=== PATIENT | female | born 1960 | race Caucasian/White ===

== ENCOUNTER 2016-11-28 01:04 | Inpatient (IN) | payer OTHER ==
[2016-11-28] VITALS (13 sets, daily range): BP systolic 135–183; BP diastolic 54–103; PULSE 80–128; RESP 16–20
[~2016-11-28] VITALS: Ht 157.5 cm; Wt 92.2 kg
[~2016-11-28 01:04] MED LIST: ATEN50TA; HYDR25TA6; LEVO75TA59; PARO20TA58
[2016-11-28] MEDS ORDERED: morphine 2 MG INJ IV PRN (03:30)
[2016-11-28] MEDS: SOD CHLORIDE 0.9% 1,000 ML IV SCH ×3 (03:30→22:55)
[2016-11-28 06:57] LABS: ALBUMIN/GLOBULIN RATIO 1.37; BILIRUBIN,INDIRECT 0.4 mg/dl (0-1.1); BILIRUBIN,TOTAL 0.4 mg/dl (0.2-1.3); CALCIUM 8.1 mg/dl (8.4-10.2); CREATININE 0.63 mg/dl (0.44-1.00); MAGNESIUM 1.5 mg/dl (1.7-2.5); PHOSPHORUS 3.5 mg/dl (2.5-4.9); TOTAL PROTEIN 6.9 g/dl (6.1-8.1)
[2016-11-28] MEDS ORDERED: LABETALOL HCL 20MG INJ IV PRN (07:30)
--- NOTE | 2016-11-28 07:54 | HP ---
Date/Time of Note Date/Time of Note DATE: 11/28/16 TIME: 07:48 Assessment/Plan VTE Prophylaxis VTE Prophylaxis Intervention: SCD's Lines/Catheters IV Catheter Type (from Nrs): Peripheral IV Urinary Cath still in place: No Assessment/Plan Assessment/Plan 1. Alcohol intoxication/withdrawal -Banana bag, IV fluid, Librium with as needed Ativan -Abstinence from alcohol is been advised. Social work/case resolution specialist will provide information to help her 2. Hypertension: Blood pressure not within goal likely contributed from alcohol intoxication -We will continue her home medications adjustment as needed 3. History of hypothyroidism -We will check TSH in the morning -We will continue her Synthroid 4. History of alcohol induced seizure: Last episode was 2 years ago -We will monitor closely. Will treat her alcohol related issue aggressively 5. History of depression/anxiety -Continue home medication 6. TMJ pain -We will provide NSAID for now HPI/ROS Admit Date/Time Admit Date/Time Nov 28, 2016 at 02:42 Hx of Present Illness This is a 56-year-old female with a history of hypertension, hypothyroidism, depression, alcohol abuse and alcohol induced seizure who initially was found intoxicated in the [facility]. She was tachycardic and is showing signs of withdrawal symptoms as well. She was given Ativan IV fluid and was transferred to [facility] because of insurance reason. Her last drink was 2 hours before she was found in the [facility]. She said that she has been drinking a pint of vodka for about 2 weeks. She has previously been to rehab but has been relapsing. She said her last alcohol induced seizure was 2 years ago. On further questioning she also complained of pain on her cheeks which she said was from a TMJ. . PMH/Family/Social Social History Smoking Status: Never smoker Exam/Review of Systems Vital Signs Vitals Vital Signs Date Time Temp Pulse Resp B/P Pulse Ox O2 Delivery O2 Flow Rate FiO2 11/28/16 04:35 123 11/28/16 02:50 98.2 16 159/54 96 Room Air Intake and Output 11/27/16 11/27/16 11/28/16 15:00 23:00 07:00 Intake Total 500 ml Balance 500 ml Exam Constitutional: other (Obese. Appears slightly anxious. Answering questions appropriately.) Head: atraumatic, normocephalic Eyes: EOMI, PERRL Respiratory: clear to auscultation, normal air movement Cardiovascular: nl pulses, regular rate and rhythm Gastrointestinal: soft Labs Result Diagram: 11/28/16 0530 Medications Medications Current Medications Multivitamins 10 ml/Thiamine HCl 100 mg/Folic Acid 1 mg/Sodium Chloride 1,011.2 ml @ 125 mls/ hr DAILY@09 IVPB ; Start 11/28/16 at 09:00 Sodium Chloride (NS) 1,000 ml @ 100 mls/hr Q10H IV Last administered on t 03:30; Admin Dose 100 MLS/HR; Start 11/28/16 at 03:30 Lorazepam (Ativan) 1 mg Q1HWA PRN IV AGITATION/ANXIETY; Start 11/28/16 at 03:30 Morphine Sulfate (morphine) 2 mg Q4H PRN IV PAIN; Start 11/28/16 at 03:30 Lorazepam (Ativan) 2 mg Q1H PRN IV alcohol withdrawal; Start 11/28/16 at 07:30 Chlordiazepoxide (Librium) 50 mg TID PO ; Start 11/28/16 at 09:00 Levothyroxine Sodium (Synthroid) 75 mcg DAILY@06 PO ; Start 11/28/16 at 08:00 Paroxetine HCl (Paxil) 20 mg DAILY PO ; Start 11/28/16 at 09:00 Labetalol HCl (Labetalol) 10 mg Q2H PRN IV sbp > 160; Start 11/28/16 at 07:30 Ibuprofen (Motrin) 400 mg Q6H PRN PO PAIN OR TEMP ABOVE 38C; Start 11/28/16 at 07:30 KIMBERLEE STEWART MD Nov 28, 2016 07:54
[2016-11-28 07:55] LABS: BASOPHILS % 0.6 % (0.0-2.0); EOSINOPHILS # 0.1 10^3/ul (0.0-0.5); EOSINOPHILS % 1.3 % (0.0-7.0); HEMATOCRIT 36.3 % (37.0-47.0); HEMOGLOBIN 12.4 g/dl (12.0-16.0); LYMPHOCYTES # 2.3 10^3/ul (0.8-2.9); LYMPHOCYTES % 33.9 % (15.0-51.0); MEAN CORPUSCULAR HEMOGLOBIN 30.8 pg (29.0-33.0); MEAN CORPUSCULAR HGB CONC 34.2 g/dl (32.0-37.0); MEAN CORPUSCULAR VOLUME 90.3 fl (82.0-101.0); MEAN PLATELET VOLUME 8.5 fl (7.4-10.4); MONOCYTE # 0.7 10^3/ul (0.3-0.9); MONOCYTES % 10.2 % (0.0-11.0); NEUTROPHIL # 3.6 10^3/ul (1.6-7.5); NEUTROPHILS % 53.7 % (39.0-77.0); PLATELET COUNT 209 10^3/UL (140-415); RED BLOOD COUNT 4.02 10^6/ul (4.20-5.40); RED CELL DISTRIBUTION WIDTH 12.6 % (11.5-14.5); WHITE BLOOD COUNT 6.7 10^3/ul (4.8-10.8)
[2016-11-28] MEDS: CHLORDIAZEPOXIDE 25 MG CAP PO SCH ×3 (09:09→20:45)
[2016-11-28] MEDS: PAROXETINE 20 MG TAB PO SCH (09:09)
[2016-11-28] MEDS: LEVOTHYROXINE 75 MCG TAB PO SCH (09:09)
[2016-11-28] MEDS: MULTIVITAMINS 10 ML, THIAMINE 100 MG, FOLIC ACID 1 MG in SOD CHLORIDE 0.9% 1,000 ML IVPB SCH (09:32)
[2016-11-28] MEDS ORDERED: NACL 0.9% 3 ML SYG IV SCH (10:30)
[2016-11-28] MEDS: ATENOLOL 50 MG TAB PO SCH (11:27)
[2016-11-28] MEDS: HYDROCHLOROTHIAZIDE 12.5 MG CAP PO SCH (11:27)
[2016-11-28] MEDS: LOSARTAN 50 MG TAB PO SCH (11:27)
--- NOTE | 2016-11-28 13:28 | QN ---
Documentation Comment continue DT prophylaxis admitted today, no progress note continue home meds prn BP medications. cont IV hydration TRAN BELL Nov 28, 2016 13:28
[2016-11-29] VITALS (13 sets, daily range): BP systolic 113–152; BP diastolic 64–84; PULSE 63–79; RESP 18–20
[2016-11-29] MEDS: IBUPROFEN 400 MG TAB PO PRN ×2 (00:09→22:47)
[2016-11-29] MEDS ORDERED: MAGNESIUM SULFATE 1 GM/D5W 100 ML IVPB ONE (03:00)
[2016-11-29] MEDS: LEVOTHYROXINE 75 MCG TAB PO SCH (05:08)
[2016-11-29 05:52] LABS: BASOPHILS % 0.8 % (0.0-2.0); EOSINOPHILS # 0.2 10^3/ul (0.0-0.5); EOSINOPHILS % 4.8 % (0.0-7.0); HEMATOCRIT 34.3 % (37.0-47.0); HEMOGLOBIN 11.8 g/dl (12.0-16.0); LYMPHOCYTES # 1.8 10^3/ul (0.8-2.9); LYMPHOCYTES % 48.4 % (15.0-51.0); MEAN CORPUSCULAR HEMOGLOBIN 31.6 pg (29.0-33.0); MEAN CORPUSCULAR HGB CONC 34.4 g/dl (32.0-37.0); MEAN PLATELET VOLUME 8.6 fl (7.4-10.4); MONOCYTE # 0.5 10^3/ul (0.3-0.9); MONOCYTES % 13.4 % (0.0-11.0); NEUTROPHIL # 1.2 10^3/ul (1.6-7.5); NEUTROPHILS % 32.6 % (39.0-77.0); PLATELET COUNT 178 10^3/UL (140-415); RED BLOOD COUNT 3.73 10^6/ul (4.20-5.40); RED CELL DISTRIBUTION WIDTH 12.5 % (11.5-14.5); WHITE BLOOD COUNT 3.7 10^3/ul (4.8-10.8)
[2016-11-29 06:31] LABS: ALBUMIN 3.7 g/dl (3.3-4.9); ALBUMIN/GLOBULIN RATIO 1.32; BILIRUBIN,INDIRECT 0.7 mg/dl (0-1.1); BILIRUBIN,TOTAL 0.7 mg/dl (0.2-1.3); CALCIUM 8.4 mg/dl (8.4-10.2); CREATININE 0.61 mg/dl (0.44-1.00); TOTAL PROTEIN 6.5 g/dl (6.1-8.1)
[2016-11-29] MEDS: CHLORDIAZEPOXIDE 25 MG CAP PO SCH ×2 (09:30→20:22)
[2016-11-29] MEDS: ATENOLOL 50 MG TAB PO SCH (09:30)
[2016-11-29] MEDS: LOSARTAN 50 MG TAB PO SCH (09:30)
[2016-11-29] MEDS: PAROXETINE 20 MG TAB PO SCH (09:30)
[2016-11-29] MEDS: HYDROCHLOROTHIAZIDE 12.5 MG CAP PO SCH (09:31)
[2016-11-29] MEDS: MULTIVITAMINS 10 ML, THIAMINE 100 MG, FOLIC ACID 1 MG in SOD CHLORIDE 0.9% 1,000 ML IVPB SCH (09:32)
[2016-11-29] MEDS: LORAZEPAM 2 MG INJ IV PRN ×4 (09:41→22:50)
--- NOTE | 2016-11-29 15:20 | PN ---
Date/Time of Note Date/Time of Note DATE: 11/29/16 TIME: 15:19 Assessment/Plan VTE Prophylaxis VTE Prophylaxis Intervention: SCD's Lines/Catheters IV [facility]ter Type (from [facility]): Peripheral IV Urinary Cath still in place: No Assessment/Plan Assessment/Plan 56 yo F admitted for acute on chronic TMJ discomfort and EtOH intoxication, remained admitted for EtOH detox TMJ discomfort: resolved EtOH detox: cont librium taper sw consult likely dc in 2-3 days once librium taper complete Subjective 24 Hr Interval Summary Free Text/Dictation Pt states she wants to stop drinking. Had previously been on Vivitrol and in AA Exam/Review of Systems Vital Signs Vitals Vital Signs Date Time Temp Pulse Resp B/P Pulse Ox O2 Delivery O2 Flow Rate FiO2 11/29/16 12:40 71 11/29/16 11:39 98.1 20 138/84 98 11/28/16 11:28 Room Air Intake and Output 11/28/16 11/28/16 11/29/16 15:00 23:00 07:00 Intake Total 300 ml 1140 ml Balance 300 ml 1140 ml Exam nad, laying in bed no mrg lungs clear abd soft no le edema Results Result Diagram: 11/29/16 0517 11/29/16 0517 Results 24 hrs Laboratory Tests Test 11/29/16 05:17 White Blood Count 3.7 #L Red Blood Count 3.73 L Hemoglobin 11.8 L Hematocrit 34.3 L Mean Corpuscular Volume 92.0 Mean Corpuscular Hemoglobin 31.6 Mean Corpuscular Hemoglobin Concent 34.4 Red Cell Distribution Width 12.5 Platelet Count 178 Mean Platelet Volume 8.6 Neutrophils % 32.6 L Lymphocytes % 48.4 Monocytes % 13.4 H Eosinophils % 4.8 Basophils % 0.8 Nucleated Red Blood Cells % 0.0 Neutrophils # 1.2 L Lymphocytes # 1.8 Monocytes # 0.5 Eosinophils # 0.2 Basophils # 0.0 Nucleated Red Blood Cells # 0.0 Sodium Level 141 Potassium Level 4.0 Chloride Level 102 Carbon Dioxide Level 26 Anion Gap 17 H Blood Urea Nitrogen 12 Creatinine 0.61 Glucose Level 97 Calcium Level 8.4 Total Bilirubin 0.7 Direct Bilirubin 0.00 Indirect Bilirubin 0.7 Aspartate Amino Transf (AST/SGOT) 28 Alanine Aminotransferase (ALT/SGPT) 38 Alkaline Phosphatase 46 Total Protein 6.5 Albumin 3.7 Globulin 2.80 Albumin/Globulin Ratio 1.32 Medications Medications Current Medications Lorazepam (Ativan) 1 mg Q1HWA PRN IV AGITATION/ANXIETY Last administered on 11/29 09:41; Admin Dose 1 MG; Start 11/28/16 at 03:30 Morphine Sulfate (morphine) 2 mg Q4H PRN IV PAIN; Start 11/28/16 at 03:30 Lorazepam (Ativan) 2 mg Q1H PRN IV alcohol withdrawal Last administered on 12:16; Admin Dose 2 MG; Start 11/28/16 at 07:30 Levothyroxine Sodium (Synthroid) 75 mcg DAILY@06 PO Last administered on 05:08; Admin Dose 75 MCG; Start 11/28/16 at 08:00 Paroxetine HCl (Paxil) 20 mg DAILY PO Last administered on 11/29/16 09:30; Admin Dose 20 MG; Start 11/28/16 at 09:00 Ibuprofen (Motrin) 400 mg Q6H PRN PO PAIN OR TEMP ABOVE 38C Last administered on 11/29/16 00:09; Admin Dose 400 MG; Start 11/28/16 at 07:30 Clonidine (Catapres) 0.1 mg Q6H PRN SL SBP >160 Last administered on 11/28/16 10:18; Admin Dose 0.1 MG; Start 11/28/16 at 10:00 Atenolol (Tenormin) 50 mg DAILY PO Last administered on 11/29/16 09:30; Admin Dose 50 MG; Start 11/28/16 at 10:30 Losartan Potassium (Cozaar) 50 mg DAILY PO Last administered on 11/29/16 09:30 ; Admin Dose 50 MG; Start 11/28/16 at 10:30 Chlordiazepoxide (Librium) 50 mg BID PO ; Start 11/29/16 at 21:00 Hydrochlorothiazide (Hydrochlorothiazide) 25 mg DAILY PO ; Start 11/30/16 at 09: 00 RADHA ANDERSON MD Nov 29, 2016 15:20
[2016-11-30 02:00] VITALS: BP 155/85; RESP 18
[2016-11-30] MEDS: LEVOTHYROXINE 75 MCG TAB PO SCH (06:32)
[2016-11-30 07:30] VITALS: BP 144/84; RESP 18
[2016-11-30] MEDS: CHLORDIAZEPOXIDE 25 MG CAP PO SCH (08:25)
[2016-11-30] MEDS: PAROXETINE 20 MG TAB PO SCH (08:25)
[2016-11-30] MEDS: LOSARTAN 50 MG TAB PO SCH (08:26)
[2016-11-30] MEDS: ATENOLOL 50 MG TAB PO SCH (08:26)
[2016-11-30] MEDS ORDERED: HYDROCHLOROTHIAZIDE 25 MG TAB PO SCH (09:00)
--- NOTE | 2016-11-30 10:50 | PDOCDIS ---
Discharge Instructions CONDITION Patient Condition: Stable HOME CARE INSTRUCTIONS: Special Diet: REGULAR FOLLOW UP/APPOINTMENTS Follow-up Plan Follow up with your psychiatrist tomorrow as scheduled Do not drink alcohol while taking Librium RADHA ANDERSON MD Nov 30, 2016 10:50
--- NOTE | 2016-11-30 10:55 | DS ---
Date/Time of Note Date/Time of Note DATE: 11/30/16 TIME: 10:51 Discharge Summary Admission/Discharge Info Admit Date/Time Nov 28, 2016 at 02:42 Discharge Date/Time Discharge Diagnosis alcohol intoxication Patient Condition: Stable Consults none Procedures none Hx of Present Illness This is a 56-year-old female with a history of hypertension, hypothyroidism, depression, alcohol abuse and alcohol induced seizure who initially was found intoxicated in the [facility]. She was tachycardic and is showing signs of withdrawal symptoms as well. She was given Ativan IV fluid and was transferred to [facility] because of insurance reason. Her last drink was 2 hours before she was found in the [facility]. She said that she has been drinking a pint of vodka for about 2 weeks. She has previously been to rehab but has been relapsing. She said her last alcohol induced seizure was 2 years ago. On further questioning she also complained of pain on her cheeks which she said was from a TMJ. . Hospital Course Pt's jaw pain resolved on its own. Pt maintained on Librium while in the hospital to prevent full blown alcohol withdrawal. Pt felt well on date of discharge, requested discharge and stated she had a follow up appointment scheduled with her psychiatrist the following day. Pt was given a prescription for 2 doses of Librium to tide her over until she is seen by her psychiatrist. Pt advised not to drink any alcohol while taking Librium as interaction could be potentially fatal. Pt voiced understanding. No other changes made from pt's home meds Home Meds Reported Medications Levothyroxine Sodium (Levothroid) 75 Mcg Tablet 01/07/10 Hydrochlorothiazide (Hydrochlorothiazide) 25 Mg Tablet 01/07/10 Paroxetine Hcl* (Paxil*) 20 Mg Tablet 01/07/10 Atenolol* (Atenolol*) 50 Mg Tablet 01/07/10 Follow-up Plan With pt's psychiatrist tomorrow as planned Primary Care Provider Agustina Servin MD Time spent on discharge: > 30 minutes Copies To: CC: AGUSTINA SERVIN MD, ELLEN MD Nov 30, 2016 10:55
[2016-11-30] MEDS ORDERED: CHLO25CA9 PO ×2 (11:04)
[2016-11-30] MEDS: LORAZEPAM 2 MG INJ IV PRN (11:11)
[2016-11-30 13:42] VITALS: BP 127/76; RESP 18
== END 2016-11-30 14:55 | disposition home or self-care (01) | DRG 897 ==
LOC: TEL 02:42 → MS2 11-29 22:30
PROVIDERS: ADMIT Internal Medicine; ATTEND Internal Medicine
DX: F10.239 Alcohol dependence with withdrawal, unspecified (principal); I10 Essential (primary) hypertension; M26.609 Unspecified temporomandibular joint disorder, unspecified side; F32.9 Major depressive disorder, single episode, unspecified; Z86.59 Personal history of other mental and behavioral disorders
CPT/HCPCS: 80053; 83735; 84100; 84439; 84443; 85025; J2060; J3411; J3475; J7030

== ENCOUNTER 2017-01-05 09:43 | Emergency (ER) | payer OTHER ==
[~2017-01-05] VITALS: Ht 121.9 cm; Wt 89.0 kg
[~2017-01-05 09:43] MED LIST changes: +CHLO25CA9 PO
[2017-01-05 09:55] VITALS: Ht 121.9 cm; Wt 89.0 kg
[2017-01-05] MEDS ORDERED: ONDANSETRON 4 MG INJ IV STA (10:07)
[2017-01-05] MEDS ORDERED: morphine 4 MG/ML VIAL IV STA (10:07)
[2017-01-05] MEDS ORDERED: SOD CHLORIDE 0.9% 1,000 ML IV STA (10:07)
[2017-01-05] MEDS ORDERED: NEOMYC/POLYMYX/BACIT 30 GM OINT TOP ONE (10:30)
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
[2017-01-05 10:53] LABS: BASOPHILS % 0.3 % (0.0-2.0); EOSINOPHILS # 0.1 10^3/ul (0.0-0.5); EOSINOPHILS % 0.6 % (0.0-7.0); LYMPHOCYTES # 1.6 10^3/ul (0.8-2.9); LYMPHOCYTES % 11.7 % (15.0-51.0); MEAN CORPUSCULAR HGB CONC 33.3 g/dl (32.0-37.0); MEAN PLATELET VOLUME 9.3 fl (7.4-10.4); MONOCYTE # 0.7 10^3/ul (0.3-0.9); MONOCYTES % 5.2 % (0.0-11.0); NEUTROPHILS % 81.5 % (39.0-77.0); PLATELET COUNT 291 10^3/UL (140-415); RED BLOOD COUNT 3.87 10^6/ul (4.20-5.40); RED CELL DISTRIBUTION WIDTH 12.1 % (11.5-14.5); WHITE BLOOD COUNT 13.6 10^3/ul (4.8-10.8)
[2017-01-05] MEDS ORDERED: SOD CHLORIDE 0.9% 100 ML ONE (10:57)
[2017-01-05] MEDS ORDERED: IOHEXOL 100 ML ONE (10:57)
[2017-01-05 11:09] LABS: ALANINE AMINOTRANSFERASE 39 IU/L (13-69); ALBUMIN 4.2 g/dl (3.3-4.9); ALBUMIN/GLOBULIN RATIO 1.44; ALKALINE PHOSPHATASE 39 IU/L (42-121); ANION GAP 15 (8-16); ASPARTATE AMINO TRANSFERASE 29 IU/L (15-46); BILIRUBIN,INDIRECT 0.2 mg/dl (0-1.1); BILIRUBIN,TOTAL 0.2 mg/dl (0.2-1.3); BLOOD UREA NITROGEN 23 mg/dl (7-20); CALCIUM 9.2 mg/dl (8.4-10.2); CARBON DIOXIDE 25 mmol/L (21-31); CHLORIDE 103 mmol/L (97-110); CREATININE 0.78 mg/dl (0.44-1.00); GLUCOSE 165 mg/dl (70-220); POTASSIUM 3.8 mmol/L (3.5-5.1); SODIUM 139 mmol/L (135-144); TOTAL PROTEIN 7.1 g/dl (6.1-8.1)
--- NOTE | 2017-01-05 11:16 | RADRPT ---
PROCEDURE: Right knee series. CLINICAL INDICATION: Right knee pain after trauma TECHNIQUE: 4 views of the right knee are available for review. COMPARISON: None available FINDINGS: There is a moderate to markedly comminuted and displaced fracture of the distal femur. There is appr oximately 2.6 cm of retraction of the distal fracture fragment.. There is no definitive intra-artic ular extension.. There is a large calcification adjacent to the lateral tibial plateau which appear s represent a large lateral osteophyte. An additional fracture could potentially be present however this fragment appears to be well corticated and is unlikely to represent fracture. There is no obvi ous joint effusion. There is diffuse soft tissue swelling. IMPRESSION: 1. Comminuted and displaced distal femoral fracture. 2. Well corticated calcification adjacent to the lateral tibial plateau is likely related to a larg e lateral osteophyte. RPTAT: AA .Dayo Ratliff MD, MD Date Time Electronically viewed and signed by .Dayo Ratliff MD, MD on 01/05/2017 11:15 .B/
--- NOTE | 2017-01-05 11:17 | RADRPT ---
PROCEDURE: XR Pelvis. CLINICAL INDICATION: Pelvic pain after trauma TECHNIQUE: Single AP view of the pelvis. COMPARISON: No prior studies are available for comparison. FINDINGS: There is normal mineralization and alignment of the bones of the pelvis. There is no evidence of ac juanis fracture or dislocation. The femoral acetabular joints appear within normal limits. The sacroi liac joints are grossly unremarkable. The sacrum itself is suboptimally visualized due to overlying bowel gas. The soft tissues are within normal limits. IMPRESSION: 1. Unremarkable x-ray pelvis. RPTAT: AA .Dayo Ratliff MD, MD Date Time Electronically viewed and signed by .Dayo Ratliff MD, on 01/05/2017 11:17 .B/
[2017-01-05 11:28] LABS: TROPONIN-I < 0.012 ng/ml (0.00-0.12)
[2017-01-05] MEDS ORDERED: ATEN50TA PO (11:57)
[2017-01-05] MEDS ORDERED: HYD25 PO (11:57)
[2017-01-05] MEDS ORDERED: LEVO75TA5 PO (11:58)
[2017-01-05] MEDS ORDERED: SERT100T PO (11:58)
[2017-01-05] MEDS ORDERED: LOSA25TA5 PO (11:58)
[2017-01-05] MEDS ORDERED: ZOLP10TA PO (11:59)
[2017-01-05] MEDS ORDERED: ALPR2TAB PO (11:59)
[2017-01-05] MEDS ORDERED: ALPR0.5T6 PO (12:00)
--- NOTE | 2017-01-05 12:27 | RADRPT ---
AMENDMENT: 01/05/2017 12:33:01 PM Froylan Waters M.D Correction: The patient received 100 ml of Omnipaque 350 intravenously. PROCEDURE: CT Chest with contrast. CLINICAL INDICATION: Chest pain with trauma TECHNIQUE: CT scan of the chest with contrast was performed on the [employer] CT scanner. The pat ient was scanned following the uncomplicated intravenous administration of 100 cc of Isovue 300 intr avenous contrast. Coronal and sagittal reformatted images were obtained from the axial source images . One or more of the following dose reduction techniques were used: - Automated exposure control. - Adjustment of the mA and/or kV according to patient size. Use of iterative reconstruction technique. DLP 1421.3 mGycm CTDIvol 7.4 and 16.9 mGy COMPARISON: None. FINDINGS: There is a diagonally oriented fracture of the sternal manubrium which extends from the sternal notc h towards the left side of the lower sternal manubrium. There is fat stranding seen anterior to this consistent with a subcutaneous contusion with mild focal hematoma is seen just anterior to the ster nal manubrium. In addition, there is slightly high density fluid and fat stranding seen in the retro sternal fat of the upper mediastinum also consistent with localized hemorrhage. There is no visible hemorrhagic fluid seen elsewhere within the mediastinum or in the pericardial space. There is no CT evidence of an aortic injury with no evidence of aortic dissection. Mild aortic atherosclerotic plaq ue and calcification is visible. The heart is within normal limits of size. Nondisplaced left-sided anterolateral fourth and fifth rib fractures are present with trace subcutan eous contusion seen overlying the fracture. There is no lung consolidation or pleural effusion or pneumothorax. Mild bibasilar atelectasis is pr esent with trace subpleural scarring. Emphysematous changes of the lungs are also present. The airwa ys are patent. There is a 6 mm ground-glass nodule within the right upper lobe on series 4, image 5 3. There are no enlarged axillary or mediastinal lymph nodes. Upper abdominal findings are given on a separate report for the CT abdomen and pelvis. IMPRESSION: Obliquely oriented fracture of the sternal manubrium is seen with subcutaneous localized contusion a nd mild hematoma directly adjacent to the fracture along with a mild amount of retrosternal hemorrha ge localized the fat adjacent to the sternum. No other mediastinal or pericardial hemorrhage is visi ble. Left-sided fourth and fifth nondisplaced rib fractures are seen. Mild bibasilar atelectasis is present with subpleural scarring and the presence of emphysema. There is no CT evidence of lung contusion or laceration with no pneumothorax or pleural effusion. Atherosclerotic disease is present. Right upper lobe pulmonary nodule can be reassessed with followup CT after 6 months. Please see separate report for the CT abdomen and pelvis findings RPTAT: AA .Froylan Waters MD, MD Date Time Electronically viewed and signed by .Froylan Waters MD, on 01/05/2017 12:33 .J/
--- NOTE | 2017-01-05 12:29 | RADRPT ---
PROCEDURE: CTA Neck. CLINICAL INDICATION: Injury, pain, assess for carotid laceration TECHNIQUE: Continues axial CT images were obtained through the neck with the use of 100 cc of Omni paque 350 nonionic intravenous contrast material. Coronal and sagittal as well as maximal intensity projection reformations were obtained. 3-D re-formations were performed. The images were reviewed o n a PACS workstation. The calculated radiation dose measures 1421 mGy centimeters. The CTDI measures 17 mGy One or more of the following dose reduction techniques were used: Automated exposure control. Adjustment of the mA and/or kV according to patient size. Use of iterative reconstruction technique. COMPARISON: No prior studies are available for comparison. FINDINGS: The aortic arch is normal appearance. The origins of the great vessels are intact. The brachiocephalic artery appears unremarkable. The right common carotid artery appears normal, wi thout stenosis or occlusion. There is mild calcification at the right carotid bifurcation, without significant vessel stenosis. The right internal carotid artery flows through normally to the intrac ranial segment. The left common carotid artery appears normal, without stenosis or occlusion. There is mild to mode rate partially calcified plaque at the left carotid bifurcation. There is up to 20% stenosis of the proximal left internal carotid artery. The left internal carotid artery flows through normally to t he intracranial segment. The vertebral arteries are patent bilaterally. There is mucosal thickening in the paranasal sinuses. There is soft tissue stranding in the right la teral lower neck. IMPRESSION: 1. No evidence for significant vascular laceration identified. The bilateral common and internal ca rotid arteries are intact. 2. Mild calcification the right carotid bifurcation without significant vessel narrowing. Mild to m oderate partially calcified plaque at the left carotid bifurcation, with 20% stenosis of the proxima l left internal carotid artery, measured according to NASCET criteria.. 3. Normal patency of the bilateral vertebral arteries. 4. Soft tissue stranding/injury in the right lateral lower neck. 5. Mild chronic sinus disease change. RPTAT: DD .Billy Lomeli MD, MD Date Time Electronically viewed and signed by .Billy Lomeli MD, MD on 01/05/2017 12:29 .T/
--- NOTE | 2017-01-05 12:32 | RADRPT ---
PROCEDURE: CT abdomen and pelvis with contrast. CLINICAL INDICATION: abdominal pain TECHNIQUE: CT scan of the abdomen and pelvis with contrast [facility] The patient was scanned after administration of 100 cc of Omnipaque 350 intravenous contrast. Sagittal and coronal reformatted images were obtained from the axial source images. One or more of the following dose reduction techniques were used: - Automated exposure control. - Adjustment of the mA and/or kV according to patient size. - Use of iterative reconstruction technique. DLP 1421.3 mGycm CTDIvol 7.4 and 16.9 mGy COMPARISON: None. FINDINGS: Lung and thoracic findings were given on a separate report for the CT chest. Localized fat stranding is seen in subcutaneous fat of the anterior right-sided pelvic wall with sma ll foci of subcutaneous hematoma present without a visible focus of active extravasation. There is mild hepatomegaly of the liver with no evidence of enhancing lesion or visible laceration. Small nonenhancing cysts are present. There is no biliary ductal dilatation. The gallbladder is unr emarkable without inflammation, and the portal vein is intact without thrombus. The spleen is unremarkable without mass. The adrenal glands are within normal limits without mass. The kidneys enhance symmetrically bilaterally without hydronephrosis or perinephric stranding. The pancreas is unremarkable without focal lesion or surrounding inflammatory changes. There is no bowel obstruction or focal bowel inflammation. The appendix is unremarkable. There is a moderately fecal filled colon.. There is diverticulosis without diverticulitis. There is no free air. There is no free fluid. There are no enlarged lymph nodes. There is aortic atherosclerosis without aneurysmal dilatation. Degenerative changes are seen in t he lumbar spine with no acute osseous abnormality. The uterus and adnexal structures are grossly within normal limits. IMPRESSION: Right lower quadrant subcutaneous contusion is seen with small foci of hematoma without evidence of visible focal active extravasation. No post-traumatic sequelae are seen elsewhere in the abdomen and pelvis with no evidence of injury t o the soft tissues or osseous structures. Fecal filled colon diverticulosis. Hepatomegaly. Atherosclerotic disease. Please see separate report of the CT chest for the thoracic findings. RPTAT: AA .Froylan Waters MD, MD Date Time Electronically viewed and signed by .Froylan Waters MD, MD on 01/05/2017 12:32 .J/
[2017-01-05] MEDS ORDERED: HYDROmorphONE 1 MG/ML SYG IV STA ×2 (12:57→16:09)
[2017-01-05 13:57] LABS: INR 0.91; PARTIAL THROMBOPLASTIN TIME 23.9 Sec (25.0-35.0); PROTIME 12.2 Sec (12.2-14.2)
[2017-01-05 16:27] VITALS: BP 112/65; PULSE 62; RESP 18
== END 2017-01-05 16:28 | disposition short-term general hospital (02) ==
LOC: E/R 09:43
DX: S22.21XA Fracture of manubrium, initial encounter for closed fracture (principal); S22.42XA Multiple fractures of ribs, left side, initial encounter for closed fracture; S72.471A Torus fracture of lower end of right femur, initial encounter for closed fracture; S20.211A Contusion of right front wall of thorax, initial encounter; I10 Essential (primary) hypertension; E03.9 Hypothyroidism, unspecified; R40.2142 Coma scale, eyes open, spontaneous, at arrival to emergency department; R40.2252 Coma scale, best verbal response, oriented, at arrival to emergency department; V49.50XA Passenger injured in collision with unspecified motor vehicles in traffic accident, initial encounter
CPT/HCPCS: 70498; 71260; 72170; 73562; 74177; 80053; 83690; 84484; 85025; 85610; 85730; 93005; 96374; 96375; J1170; J2270; J2405; J7030; Q9967; Z7502; Z7610